=== PATIENT | female | born 1975 | race Caucasian/White ===

== ENCOUNTER 2017-08-02 11:03 | Emergency (ER) | payer OTHER ==
[~2017-08-02] VITALS: Ht 172.7 cm; Wt 79.4 kg
[2017-08-02 13:16] LABS: ABSOLUTE EOSINOPHILS 0.2 thou/uL (0.0-0.7); ABSOLUTE LYMPHOCYTES 2.5 thou/uL (0.8-5.3); ABSOLUTE MONOCYTES 0.8 thou/uL (0.0-1.2); ABSOLUTE NEUTROPHILS 6.4 thou/uL (1.6-8.1); BASOPHILS 0.4 %; EOSINOPHILS 1.7 %; HEMATOCRIT 42.2 % (37.0-47.0); LYMPHOCYTES 25.6 %; MCH 29.9 pg (26.0-34.0); MCHC 33.2 g/dL (28.0-37.0); MCV 90.1 fL (80.0-100.0); MONOCYTES 7.7 %; MPV 8.9 fl. (7.2-11.1); NUCLEATED RBCS 0 /100WBC; PLATELET COUNT* 180 thou/uL (150-400); POLYS 64.6 %; RBC 4.68 mil/uL (4.20-5.00); RDW-CV 13.5 % (10.5-14.5); WBC 9.8 thou/uL (4.0-11.0)
[2017-08-02 13:23] LABS: CALCIUM 9.1 mg/dL (8.5-10.1); CREATININE 0.8 mg/dL (0.6-1.3); POTASSIUM 4.2 mmol/L (3.5-5.1)
[2017-08-02 13:24] LABS: INR 0.9; PROTIME 9.2 Seconds (9.20-11.50)
[2017-08-02 13:28] LABS: ALBUMIN 3.4 g/dL (3.4-5.0); TOTAL BILIRUBIN 0.2 mg/dL (<0.1-1.0); TOTAL PROTEIN 6.8 g/dL (6.4-8.2)
[2017-08-02] MEDS ORDERED: COUMADIN 2 MG TA2 M1 PO (14:40)
[2017-08-02] MEDS ORDERED: KEFLEX500 M1 PO (14:42)
[2017-08-02 14:45] VITALS: BP 120/75
== END 2017-08-02 14:48 | disposition home or self-care (01) ==
LOC: M.ERS 11:03
PROVIDERS: Personal Emergency Response Attendant
DX: M79.662 Pain in left lower leg (principal); M79.661 Pain in right lower leg; L03.116 Cellulitis of left lower limb; L03.115 Cellulitis of right lower limb; F17.210 Nicotine dependence, cigarettes, uncomplicated; M19.90 Unspecified osteoarthritis, unspecified site; Z88.8 Allergy status to other drugs, medicaments and biological substances

== ENCOUNTER 2017-08-22 09:40 | Emergency (ER) | payer OTHER ==
[~2017-08-22] VITALS: Ht 152.4 cm; Wt 83.9 kg
[~2017-08-22 09:40] MED LIST: COUMADIN 2 MG TA2 M1 PO; KEFLEX500 M1 PO
[2017-08-22] MEDS ORDERED: FLEXERIL PO (10:08)
[2017-08-22] MEDS ORDERED: ULTRAM 50MG TAB50 MG PO (10:08)
[2017-08-22 10:19] LABS: APTT 26.9 Seconds (25.0-31.3); INR 1.1; PROTIME 10.4 Seconds (9.20-11.50)
[2017-08-22 10:30] VITALS: BP 149/80
== END 2017-08-22 10:30 | disposition home or self-care (01) ==
LOC: M.ERS 09:40
PROVIDERS: Family Medicine
DX: M54.5 Low back pain (principal); M19.90 Unspecified osteoarthritis, unspecified site; F17.210 Nicotine dependence, cigarettes, uncomplicated; Z88.8 Allergy status to other drugs, medicaments and biological substances; Z90.49 Acquired absence of other specified parts of digestive tract